=== PATIENT | female | born 1970 | race Caucasian/White ===

== ENCOUNTER 2019-12-11 05:03 | Emergency (ER) | payer SELFPAY ==
[~2019-12-11] VITALS: Ht 180.3 cm; Wt 79.4 kg
--- NOTE | 2019-12-11 05:07 | Emergency Department Note ---
History of Present Illnes History of Present Illness Chief Complaint: Back Pain History of Present Illness This is a 48 year old female presents to the ED for r Upper back pain since yesterday AM. Worse with movement and deep breath. recent lab testing with negative D-Dimer and Cardiac enzymes. Historian: Patient Onset (how long ago): day(s) Radiation: Reports back Severity: moderate Duration (how long): day(s) Timing of current episode: constant Chronicity: new Context: Denies trauma/injury Relieving factors: immobilization, rest Associated symptoms: Denies denies other symptoms, Denies confusion, Denies chest pain, Denies cough, Denies diaphoresis, Denies fever/chills, Denies headaches, Denies loss of appetite, Denies malaise, Denies nausea/vomiting, Denies rash, Denies seizure, Denies shortness of breath, Denies syncope, Denies weakness, Denies other Treatments prior to arrival: none (DANIELLE SHERMAN DO) History of Present Illness pt admits that 2 days ago her dog pulled her rue. then pain started when pt coughed 1 day ago. (EAGLE HUNTER) Past Medical/Family History Physician Review I have reviewed the patient's past medical and family history. Any updates have been documented here. (DANIELLE SHERMAN DO) Past Medical History Recent Fever: No Clinical Suspicion of Infectio: No New/Unexplained Change in Ment: No Past Surgical History: Hysterectomy Other Surgery: Breast Reduction (DANIELLE SHERMAN DO) Social History Smoking Cessation: Never Smoker Alcohol Use: None Any Illegal Drug Use: No (DANIELLE SHERMAN DO) Review of Systems Review of Systems Constitutional: Reports no symptoms EENTM: Reports no symptoms Cardiovascular: Reports no symptoms Respiratory: Reports no symptoms Gastrointestinal: Reports no symptoms Genitourinary: Reports no symptoms Musculoskeletal: Reports back pain Integumentary: Reports no symptoms Neurological: Reports no symptoms Psychological: Reports no symptoms Endocrine: Reports no symptoms Hematological/Lymphatic: Reports no symptoms (DANIELLE SHERMAN DO) Physical Exam Related Data Allergies: Coded Allergies: Sulfa (Sulfonamide Antibiotics) (Verified Allergy, Intermediate, 12/11/19) Physical Exam CONSTITUTIONAL HENT EYES NECK PULMONARY CARDIOVASCULAR GASTROINTESTINAL GENITOURINARY SKIN MUSCULOSKELETAL Musculoskeletal: Present tenderness (right upper thoracic paraspinal tenderness) NEUROLOGICAL PSYCHOLOGICAL (DANIELLE SHERMAN DO) Musculoskeletal: Present other (muscle spasms rgt upper back) (EAGLE HUNTER) Results Laboratory Lab results reviewed: Yes (cbc/bmp/bnp/d dimer/cardiac enzymes normal) (EAGLE HUNTER) Imaging Imaging results reviewed: Yes Impressions [place] [id number] [place] [id number] Patient Name: MEG HODGES MR #: [id number] : 1970 Age/Sex: 48/F Req #: [id number] Adm Physician: Ordered by: DANIELLE SHERMAN DO Report #: [id number] Location: ER Room/Bed: Procedure: [id number] DX/CHEST 2 VIEWS Exam Date: 12/11/19 Exam Time: 534 REPORT STATUS: Signed EXAMINATION: CHEST 2 VIEWS INDICATION: ^ORDER PLACED BY ^[id number] ^[id number] ^Y COMPARISON: None FINDINGS: PA and lateral views TUBES and LINES: None. LUNGS: Lungs are well inflated. There is no evidence of pneumonia or pulmonary edema. PLEURA: No pleural effusion or pneumothorax. HEART AND MEDIASTINUM: The cardiomediastinal silhouette is unremarkable. BONES AND SOFT TISSUES: No acute osseous lesion. Soft tissues are unremarkable. UPPER ABDOMEN: No free air under the diaphragm. IMPRESSION: No acute thoracic abnormality. Signed by: Dr. Grady Poole MD on 12/11/2019 6:11 AM Dictated By: GRADY POOLE MD 0 Transcribed By: EVERARDO on 12/11/19610 COPY TO: DANIELLE SHERMAN DO~ (EAGLE HUNTER) Procedures 12 Lead ECG Interpretation ECG Interpretation : ECG: ECG 1 Crtt: Interpreted by ED physician Date: Dec 11, 2019 Time: 05:21 Prior ECG tracings: reviewed Rate: normal BPM: 69 QRS axis: normal ST segments normal: No ST segment flattening: V4, V5, V6 T waves normal: No T waves flattening: V3, V4, V5, V6 Clinical Impression: abnormal ECG (DANIELLE SHERMAN DO) Assessment & Plan Medical Decision Making MDM Diff Dx : ACS, PE, Pneumonia, Msc strain (WHITDANIELLE ) Reassessment Reassessment time: 06:15 Reassessment pain almost resolved s/p toradol (EAGLE HUNTER) Assessment & Plan Final Impression: (1) Back strain (2) Abnormal EKG (EAGLE HUNTER) Depart Disposition: HOME, SELF-long term Meds Active Scripts Cyclobenzaprine Hcl (FLEXERIL) 5 Mg Tablet, 10 MG PO Q8H PRN for MODERATE PAIN (4-6), #15 TAKE AFTER PREDNISONE TO CONTROL PAIN Prov:EAGLE HUNTER 12/11/19 Prednisone (PREDNISONE) 20 Mg Tab, 60 MG PO DAILY PRN for MODERATE PAIN (4-6), #15 TAB PRN PAIN. TAKE ALL 3 20 MG PILLS AT ONCE Prov:EAGLE HUNTER 12/11/19 WHITDANIELLE Dec 11, 2019 05:07 EAGLE HUNTER Dec 11, 2019 06:22
[2019-12-11] MEDS ORDERED: KETOROLAC TROMETHAMINE 60 MG/2 ML VIAL IM ONE (05:15)
[2019-12-11 05:29] LABS: BASOPHILS % 0.5 % (0.0-1.0); EOSINOPHILS # (AUTO) 0.2 (0.0-0.4); HEMATOCRIT 42.8 % (34.2-44.1); HEMOGLOBIN 13.8 g/dL (12.0-16.0); LYMPHOCYTES % 41.1 % (18.0-39.1); MEAN CORPUSCULAR HEMOGLOBIN 30.2 pg (28-32); MEAN CORPUSCULAR HGB CONC 32.2 g/dL (31-35); MEAN CORPUSCULAR VOLUME 93.7 fL (81-99); MONOCYTES # (AUTO) 0.4 (0.2-0.8); MONOCYTES % 5.8 % (4.4-11.3); NEUTROPHILS # (AUTO) 3.6 (2.1-6.9); NEUTROPHILS % 49.5 % (38.7-80.0); PLATELET COUNT 247 x10e3/uL (140-360); RED BLOOD COUNT 4.57 x10e6/uL (3.6-5.1); RED CELL DISTRIBUTION WIDTH 12.4 % (11.7-14.4)
[2019-12-11] MEDS ORDERED: KETOROLAC TROMETHAMINE 60 MG/2 ML VIAL ONE (05:37)
[2019-12-11 05:49] LABS: ALANINE AMINOTRANSFERASE 18 IU/L (0-55); ALBUMIN 4.6 g/dL (3.5-5.0); ALBUMIN/GLOBULIN RATIO 1.4 (0.8-2.0); ALKALINE PHOSPHATASE 87 IU/L (40-150); ANION GAP 16.5 mmol/L (8-16); BLOOD UREA NITROGEN 15 mg/dL (7-26); BUN/CREATININE RATIO 18 (6-25); CALCIUM 9.5 mg/dL (8.4-10.2); CARBON DIOXIDE 26 mmol/L (22-29); CHLORIDE 104 mmol/L (98-107); CREATINE KINASE 95 IU/L (29-168); CREATININE, SERUM 0.85 mg/dL (0.57-1.11); EST GLOMERULAR FILTRATION RATE > 60 ML/MIN (60-); GLUCOSE 92 mg/dL (74-118); POTASSIUM 4.5 mmol/L (3.5-5.1); SODIUM 142 mmol/L (136-145)
[2019-12-11 06:15] VITALS: BP 124/79
--- NOTE | 2019-12-11 06:15 | Diagnostic Imaging Report ---
EXAMINATION: CHEST 2 VIEWS INDICATION: ^ORDER PLACED BY ^[id number] ^[id number] ^Y COMPARISON: None FINDINGS: PA and lateral views TUBES and LINES: None. LUNGS: Lungs are well inflated. There is no evidence of pneumonia or pulmonary edema. PLEURA: No pleural effusion or pneumothorax. HEART AND MEDIASTINUM: The cardiomediastinal silhouette is unremarkable. BONES AND SOFT TISSUES: No acute osseous lesion. Soft tissues are unremarkable. UPPER ABDOMEN: No free air under the diaphragm. IMPRESSION: No acute thoracic abnormality. Signed by: Dr. Grady Gonzalez MD on 12/11/2019 6:11 AM
[2019-12-11] MEDS ORDERED: CYCLOBENZAPRINE5 MG PO (06:22)
[2019-12-11] MEDS ORDERED: PREDNISONE20 MG PO (06:22)
== END 2019-12-11 06:39 | disposition home or self-care (01) ==
LOC: ER 05:19
DX: M54.6 Pain in thoracic spine (principal); S23.3XXA Sprain of ligaments of thoracic spine, initial encounter; Y93.83 Activity, rough housing and horseplay; R94.31 Abnormal electrocardiogram [ECG] [EKG]
CPT/HCPCS: 36415; 71046; 80053; 82550; 82553; 83880; 84484; 85025; 85379; 93005; 99283; J1885